=== PATIENT | male | born 1990 | race Two or more races ===

== ENCOUNTER 2019-04-03 15:14 | Emergency (ER) | payer SELFPAY ==
[~2019-04-03] VITALS: Ht 172.7 cm; Wt 68.0 kg
[2019-04-03] MEDS ORDERED: SODIUM CHLORIDE 0.9% 1,000 ML IV ONE (15:46)
[2019-04-03 16:08] LABS: BASOPHILS % 0.9 % (0.0-2.0); CHLORIDE 103 mEq/L (98-107); EOSINOPHILS % 0.6 % (0.0-5.0); HEMATOCRIT. 42.4 % (42.0-52.0); HEMOGLOBIN. 14.9 g/dL (14.0-18.0); LYMPHOCYTES % 19.9 % (20.0-50.0); MEAN CORPUSCULAR HEMOGLOBIN 33.3 pg (28.0-32.0); MEAN PLATELET VOLUME 7.4 fl (7.4-10.4); MONOCYTES % 5.8 % (2.0-8.0); NEUTROPHILS % 72.8 % (40.0-76.0); PLATELET 195 x1000/uL (130-400); RED BLOOD CELL COUNT 4.46 mill/uL (4.7-6.1)
[2019-04-03 16:12] LABS: ETHANOL BLOOD < 10 mg/dL
[2019-04-03] MEDS ORDERED: MAGNESIUM 2 G PREMIX 50 ML IV ONE (17:45)
[2019-04-03 18:35] LABS: *AMPHETAMINES SCREEN URINE NEGATIVE (NEGATIVE); *BARBITURATES SCREEN URINE NEGATIVE (NEGATIVE); *COCAINE SCREEN URINE PRESUMTIVE POSITIVE (NEGATIVE)
[2019-04-03 18:36] LABS: *BENZODIAZEPINES SCREEN URINE NEGATIVE (NEGATIVE); CANNABINOID URINE SCREEN PRESUMTIVE POSITIVE (NEGATIVE); METHADONE URINE SCREEN NEGATIVE (NEGATIVE); OPIATES URINE SCREEN NEGATIVE (NEGATIVE); PHENCYCLIDINE URINE SCREEN NEGATIVE (NEGATIVE)
[2019-04-03 21:25] VITALS: BP 122/65
== END 2019-04-03 21:27 | disposition home or self-care (01) ==
LOC: ER 15:14
DX: R55 Syncope and collapse (principal); F41.1 Generalized anxiety disorder; F45.8 Other somatoform disorders; E83.42 Hypomagnesemia
CPT/HCPCS: 36415; 70450; 71045; 80053; 80305; 80320; 83735; 83880; 84484; 85025; 93005; 96365; 99284; J3475; J7030; G0480